=== PATIENT | female | born 1970 | race American Indian/Alaskan Native ===

== ENCOUNTER 2019-08-09 00:11 | Emergency (ER) | payer MEDICARE ==
[2019-08-09] MEDS ORDERED: ONDANSETRON 4 MG/2 ML INJ IV ONE ×2 (00:45→03:15)
[2019-08-09] MEDS ORDERED: MORPHINE 4 MG/1 ML INJ IV ONE (00:45)
[2019-08-09] MEDS ORDERED: SODIUM CHLORIDE 0.9% 500 ML 500 ML IV ONE (00:46)
--- NOTE | 2019-08-09 01:19 | Emergency Department Report ---
ED Abdominal Pain HPI - General Chief Complaint: Abdominal Pain Stated Complaint: ABDOMINAL PAIN Time Seen by Provider: 08/09/19 00:34 Source: patient Mode of arrival: Ambulatory Limitations: No Limitations - History of Present Illness Initial Comments: Patient is a 49-year-old female who presents emergency room with complaints of epigastric and right upper quadrant pain that began 4 days ago but worsened in the last 2 days. She has associated nausea and vomiting. She states that she has had approximately 3 episodes of vomiting today. She states that she is unable to tolerate p.o. intake. She denies any fever, diarrhea, hematochezia, pus in the stool, melena, hematemesis, urinary symptoms. Patient states that she has been taking Bentyl without much relief. She states that she has a history of pancreatitis. She states that her GI doctor is at [facility]. She has a past medical history of lupus and hypertension. She has an allergy to penicillin. She states that she went through menopause. Severity scale (0 -10): 10 - Related Data Home Medications Medication Instructions Recorded Confirmed Last Taken SEROquel 200 mg PO DAILY 01/04/15 01/19/18 01/16/18 traZODone 100 mg PO DAILY 01/04/15 01/19/18 01/16/18 Previous Rx's Medication Instructions Recorded Last Taken Type Losartan [Cozaar] 50 mg PO QDAY #30 tablet 01/24/18 Unknown Rx Pantoprazole [Protonix TAB] 40 mg PO DAILY #30 tablet 01/24/18 Unknown Rx Sertraline [Zoloft] 100 mg PO BID tablet 01/24/18 Unknown Rx Tri-Previfem Tablet 1 tab PO DAILY 01/24/18 Unknown Rx amLODIPine 10 mg PO QDAY #30 tablet 01/24/18 Unknown Rx hydrALAZINE [Apresoline TAB] 10 mg PO Q8H #90 tablet 01/24/18 Unknown Rx metroNIDAZOLE [Flagyl] 500 mg PO Q8HR #15 tablet 01/24/18 Unknown Rx oxyCODONE /ACETAMINOPHEN [Percocet 1 tab PO QHS PRN #5 tablet 01/24/18 Unknown Rx 5/325] HYDROcodone/APAP 5-325 [Hackberry 1 each PO Q6HR PRN #10 tablet 08/09/19 Unknown Rx 5/325] Ondansetron [Zofran Odt] 4 mg PO Q8HR PRN #10 tab.rapdis 08/09/19 Unknown Rx Allergies Allergy/AdvReac Type Severity Reaction Status Date / Time Penicillins Allergy Hives Verified 01/11/15 15:15 ED Review of Systems ROS: Stated complaint: ABDOMINAL PAIN Other details as noted in HPI Comment: All other systems reviewed and negative ED Past Medical Hx - Past Medical History Hx Hypertension: Yes Hx Heart Attack/AMI: No Hx Liver Disease: No Hx Renal Disease: No Hx Sickle Cell Disease: Yes (trait) Hx Seizures: No Hx Asthma: No Hx COPD: No Hx HIV: No Additional medical history: Angina, Lupus, pancreatitis - Surgical History Past Surgical History?: No Hx Pacemaker: No Hx Internal Defibrillator: No Additional Surgical History: Hernia, Fibroids - Social History Smoking Status: Current Some Day Smoker - Medications Home Medications: Home Medications Medication Instructions Recorded Confirmed Last Taken Type SEROquel 200 mg PO DAILY 01/04/15 01/19/18 01/16/18 History traZODone 100 mg PO DAILY 01/04/15 01/19/18 01/16/18 History Losartan [Cozaar] 50 mg PO QDAY #30 tablet 01/24/18 Unknown Rx Pantoprazole [Protonix TAB] 40 mg PO DAILY #30 tablet 01/24/18 Unknown Rx Sertraline [Zoloft] 100 mg PO BID tablet 01/24/18 Unknown Rx Tri-Previfem Tablet 1 tab PO DAILY 01/24/18 Unknown Rx amLODIPine 10 mg PO QDAY #30 tablet 01/24/18 Unknown Rx hydrALAZINE [Apresoline TAB] 10 mg PO Q8H #90 tablet 01/24/18 Unknown Rx metroNIDAZOLE [Flagyl] 500 mg PO Q8HR #15 tablet 01/24/18 Unknown Rx oxyCODONE /ACETAMINOPHEN [Percocet 1 tab PO QHS PRN #5 tablet 01/24/18 Unknown Rx 5/325] HYDROcodone/APAP 5-325 [Hackberry 1 each PO Q6HR PRN #10 tablet 08/09/19 Unknown Rx 5/325] Ondansetron [Zofran Odt] 4 mg PO Q8HR PRN #10 tab.rapdis 08/09/19 Unknown Rx ED Physical Exam - General Limitations: No Limitations General appearance: alert, in no apparent distress - Head Head exam: Present: atraumatic, normocephalic - Eye Eye exam: Present: normal appearance - ENT ENT exam: Present: mucous membranes moist - Respiratory Respiratory exam: Present: normal lung sounds bilaterally. Absent: respiratory distress, wheezes, rales, rhonchi, stridor, chest wall tenderness, accessory muscle use, decreased breath sounds, prolonged expiratory - Cardiovascular Cardiovascular Exam: Present: regular rate, normal rhythm, normal heart sounds. Absent: systolic murmur, diastolic murmur, rubs, gallop - GI/Abdominal GI/Abdominal exam: Present: soft, tenderness (RUQ, epigastric), guarding (voluntary ), normal bowel sounds, other (positive murphys sign). Absent: distended, rebound, rigid - Rectal Rectal exam: Present: normal rectal tone, other (graduate teacher education: CARRIE ayala, rectal vault is empty, there is no ttp of the rectum, no obvious masses). Absent: fecal impaction, hemorrhoids - Neurological Exam Neurological exam: Present: alert, oriented X3 - Psychiatric Psychiatric exam: Present: normal affect, normal mood - Skin Skin exam: Present: warm, dry, intact ED Course Vital Signs 08/09/19 08/09/19 08/09/19 00:13 00:57 01:27 Temperature 98.4 F Pulse Rate 94 H Respiratory 18 18 18 Rate Blood Pressure 167/98 Blood Pressure [Left] O2 Sat by Pulse 99 Oximetry 08/09/19 08/09/19 08/09/19 03:22 03:52 03:54 Temperature 98.0 F Pulse Rate 88 Respiratory 18 18 18 Rate Blood Pressure Blood Pressure 143/94 [Left] O2 Sat by Pulse 100 Oximetry - Consultations Consultation #1: 08/09/19 03:[address] Ascencio, general surgery regarding CT abdomen pelvis findings, he believes very unlikely to be perirectal abscess given no rectal pain or leukocytosis, recommended doing digital rectal exam to assess for tenderness and swelling, he advised that if not having tenderness then most likely to be neoplasm and patient will need to follow-up as an outpatient with colorectal surgery ED Medical Decision Making - Lab Data Result diagrams: 08/09/19 01:22 08/09/19 01:22 Lab Results 08/09/19 08/09/19 08/09/19 Range/Units 01:22 01:22 Unknown WBC 4.0 L (4.5-11.0) K/mm3 RBC 5.37 H (3.65-5.03) M/mm3 Hgb 12.7 (10.1-14.3) gm/dl Hct 39.4 (30.3-42.9) % MCV 73 L (79-97) fl MCH 24 L (28-32) pg MCHC 32 (30-34) % RDW 14.7 (13.2-15.2) % Plt Count 138 L (140-440) K/mm3 Lymph % (Auto) 38.0 H (13.4-35.0) % [place] % (Auto) 11.3 H (0.0-7.3) % Eos % (Auto) 1.0 (0.0-4.3) % Baso % (Auto) 0.8 (0.0-1.8) % Lymph # 1.5 (1.2-5.4) K/mm3 [place] # 0.4 (0.0-0.8) K/mm3 Eos # 0.0 (0.0-0.4) K/mm3 Baso # 0.0 (0.0-0.1) K/mm3 Seg Neutrophils % 48.9 (40.0-70.0) % Seg Neutrophils # 1.9 (1.8-7.7) K/mm3 Sodium 139 (137-145) mmol/L Potassium 4.0 (3.6-5.0) mmol/L Chloride 101.6 (98-107) mmol/L Carbon Dioxide 25 (22-30) mmol/L Anion Gap 16 mmol/L BUN 15 (7-17) mg/dL Creatinine 0.7 (0.7-1.2) mg/dL Estimated GFR > 60 ml/min BUN/Creatinine Ratio 21 % Glucose 127 H (65-100) mg/dL Calcium 8.8 (8.4-10.2) mg/dL Total Bilirubin 0.30 (0.1-1.2) mg/dL AST 14 (5-40) units/L ALT 9 (7-56) units/L Alkaline Phosphatase 84 (35-129) units/L Troponin T < 0.010 (0.00-0.029) ng/mL Total Protein 5.9 L (6.3-8.2) g/dL Albumin 4.0 (3.9-5) g/dL Albumin/Globulin Ratio 2.1 % Lipase 73 H (13-60) units/L Urine Color Straw (Yellow) Urine Turbidity Clear (Clear) Urine pH 7.0 (5.0-7.0) Ur Specific [place] 1.013 (1.003-1.030) Urine Protein <15 mg/dl (Negative) mg/dL Urine Glucose (UA) Neg (Negative) mg/dL Urine Ketones Neg (Negative) mg/dL Urine Blood Sm (Negative) Urine Nitrite Neg (Negative) Urine Bilirubin Neg (Negative) Urine Urobilinogen < 2.0 (<2.0) mg/dL Ur Leukocyte Esterase Neg (Negative) Urine WBC (Auto) 1.0 (0.0-6.0) /HPF Urine RBC (Auto) 3.0 (0.0-6.0) /HPF U Epithel Cells (Auto) 2.0 (0-13.0) /HPF Urine Bacteria (Auto) 1+ (Negative) /HPF - EKG Data EKG shows normal: sinus rhythm, axis, intervals, QRS complexes Rate: normal - EKG Data 08/09/19 04:[address]-T wave changes No STEMI - Radiology Data Radiology results: report reviewed CT ABDOMEN AND PELVIS WITH CONTRAST INDICATION: epigastric, RUQ pain, hx of pancreatitis, CONTRAST: 75 cc Omnipaque 300 IV COMPARISON: 01/19/[address] scans at this location are performed using CT dose reduction for ALARA by means of automated exposure control. FINDINGS: Mild atelectatic changes are noted in the left lower lobe but no areas of consolidation are seen. No pneumoperitoneum is noted. Multiple small hypodensities are stable in the liver. I see no abnormalities of the gallbladder or bile ducts. Pancreas shows no obvious masses but the pancreatic duct is mildly prominent at up to 4 mm in the proximal to midportion. No definite inflammation is seen of the pancreas though there is some fluid density now adjacent to the pancreas which was not obvious previously. No organized collection is seen however. No urinary obstructive changes are seen. No evidence of bowel obstruction is noted. Appendix appears within normal limits. Multiple uterine leiomyomata are again seen. No lymphadenopathy is noted. 2 the right of the upper to mid rectum and ovoid 2.5 x 1.2 cm possible collection is seen with internal density well above the water range measuring 65 Hounsfield units. On previous study there is a suggestion of a much less obvious thickening in this area. This may be intramural and could actually represent a mass in the wall of the rectum rather than a collection. I do not see significant surrounding inflammation. No obstructive changes are seen. No evidence of perforation is noted. IMPRESSION: 1. Though I do not see obvious acute inflammation of the pancreas there appears to be a small amount of peripancreatic fluid, nonorganized, which might relate to recent pancreatitis. The pancreatic duct is slightly prominent now without a source seen. Clinical correlation is suggested. 2. Mass versus moderate density collection in the right wall of the rectum as above. I do not see surrounding inflammation. Neoplasia versus developing perirectal abscess should be considered. Signer Name: Jan Augustin MD Signed: 08/09/2019 2:56 AM Workstation Name: [id number] Transcribed By: IMELDA Dictated By: Jan Augustin MD Electronically Authenticated By: Jan Augustin MD Signed Date/Time: 08/09/19 0256 DD/ 0244 TD/TT: - Medical Decision Making Patient is a 49-year-old female who presents emergency room with complaints of epigastric and right upper quadrant pain that began 4 days ago but worsened in the last 2 days. She has associated nausea and vomiting. She states that she has had approximately 3 episodes of vomiting today. She states that she is unable to tolerate p.o. intake. She denies any fever, diarrhea, hematochezia, pus in the stool, melena, hematemesis, urinary symptoms. Patient states that she has been taking Bentyl without much relief. She states that she has a history of pancreatitis. She states that her GI doctor is at [facility]. She has a past medical history of lupus and hypertension. She has an allergy to penicillin. She states that she went through menopause. Vitals are stable. Labs with very mildly elevated lipase at 73, otherwise stable. UA is normal. CT abd pelvis: 1. Though I do not see obvious acute inflammation of the pancreas there appears to be a small amount of peripancreatic fluid, nonorganized, which might relate to recent pancreatitis. The pancreatic duct is slightly prominent now without a source seen. Clinical correlation is suggested. 2. Mass versus moderate density collection in the right wall of the rectum as above. I do not see surrounding inflammation. Neoplasia versus developing perirectal abscess should be considered. Discussed CT findings with Dr. Del Rio, ER attending who r ecommended to consult general surgery regarding neoplasia versus perirectal abscess. Spoke with Dr. Ascencio, general surgery regarding CT abdomen pelvis findings, he believes very unlikely to be perirectal abscess given no rectal pain or leukocytosis, recommended doing digital rectal exam to assess for tenderness and swelling, he advised that if not having tenderness then most likely to be neoplasm and patient will need to follow-up as an outpatient with colorectal surgery. Digital rectal exam performed and there is no tenderness, no obvious palpable mass, graduate teacher education CARRIE Ayala. Patient given IV fluids, nausea medication, pain medication and symptoms significantly improved. Patient was able to tolerate p.o. intake while in the emergency department. Discussed all results with patient and patient given her CT report. Discussed with patient that she need to follow-up with her GI doctor. Patient also referred to colorectal surgeon. Discussed the importance of patient following up with a colorectal surgeon regarding the rectal mass on CT. Patient verbalized understanding. Patient given prescription for Zofran and Hackberry. Advised patient Please take medication as prescribed. Do not drive or operate heavy machinery while taking pain medication. Increase your fluid intake over the next several days. Eat a bland diet. Please initially start with liquids and slowly advance your diet. Please follow-up with a colorectal surgeon due to the mass present on your CT. Please take your CT report with you. Return to emergency room for any new or worsening symptoms including but not limited to worsening abdominal pain, fever, unable to tolerate by mouth intake, etc. discussed strict return precautions with patient. - Differential Diagnosis Pancreatitis, PUD, GERD, cholelithiasis, cholecystitis, bowel obstruction Critical care attestation.: If time is entered above; I have spent that time in minutes in the direct care of this critically ill patient, excluding procedure time. ED Disposition Clinical Impression: Rectal mass Abdominal pain Qualifiers: Abdominal location: epigastric Qualified Code(s): R10.13 - Epigastric pain Disposition: - TO HOME OR SELFCARE Is pt being admited?: No Does the pt Need Aspirin: No Condition: Stable Instructions: Abdominal Pain (ED) Additional Instructions: Please take medication as prescribed. Do not drive or operate heavy machinery while taking pain medication. Increase your fluid intake over the next several days. Eat a bland diet. Please initially start with liquids and slowly advance your diet. Please follow-up with a colorectal surgeon due to the mass present on your CT. Please take your CT report with you. Return to emergency room for any new or worsening symptoms including but not limited to worsening abdominal pain, fever, unable to tolerate by mouth intake, etc. [facility] Address: [address], [place] [address] [facility] Address: [address], [place] [address] [facility], Address: [address], [place] [address] Prescriptions: HYDROcodone/APAP 5-325 [Hackberry 5/325] 1 each PO Q6HR PRN #10 tablet PRN Reason: Pain , Severe (7-10) Ondansetron [Zofran Odt] 4 mg PO Q8HR PRN #10 tab.rapdis PRN Reason: Nausea And Vomiting Referrals: colorectal, surgeon [Other] - 3-5 Days Time of Disposition: 03:57 Print Language: KISWAHILI
[2019-08-09 01:37] LABS: Bacteria,Urine 1+ /HPF (Negative); Bilirubin,Urine NEG (Negative); Blood,Urine SM (Negative); Color,Urine Straw (Yellow); Protein,Urine <15 mg/dL mg/dL (Negative); Urobilinogen,Urine < 2.0 mg/dL (<2.0)
[2019-08-09 01:48] LABS: Basophils % (Auto) 0.8 % (0.0-1.8); Hematocrit 39.4 % (30.3-42.9); Hemoglobin 12.7 gm/dl (10.1-14.3); Lymphocytes # (Auto) 1.5 K/mm3 (1.2-5.4); Mean Corpuscular HGB Conc 32 % (30-34); Mean Corpuscular Volume 73 fl (79-97); Monocytes # (Auto) 0.4 K/mm3 (0.0-0.8); Monocytes % (Auto) 11.3 % (0.0-7.3); Platelet Count 138 K/mm3 (140-440); Red Blood Count 5.37 M/mm3 (3.65-5.03); Red Cell Distribution Width 14.7 % (13.2-15.2)
[2019-08-09 02:09] LABS: Alanine Aminotransferase 9 units/L (7-56); BUN/Creatinine Ratio 21; Blood Urea Nitrogen 15 mg/dL (7-17); Calcium 8.8 mg/dL (8.4-10.2); Hemolysis Index 43
--- NOTE | 2019-08-09 03:01 | Cat Scan Report ---
CT ABDOMEN AND PELVIS WITH CONTRAST INDICATION: epigastric, RUQ pain, hx of pancreatitis, CONTRAST: 75 cc Omnipaque 300 IV COMPARISON: 01/19/[address] scans at this location are performed using CT dose reduction for ALARA by means of automated e xposure control. FINDINGS: Mild atelectatic changes are noted in the left lower lobe but no areas of consolidation are seen. No pneumoperitoneum is noted. Multiple small hypodensities are stable in the liver. I see no a bnormalities of the gallbladder or bile ducts. Pancreas shows no obvious masses but the pancreatic duct is mildly prominent at up to 4 mm in the pro ximal to midportion. No definite inflammation is seen of the pancreas though there is some fluid dens ity now adjacent to the pancreas which was not obvious previously. No organized collection is seen ho wever. No urinary obstructive changes are seen. No evidence of bowel obstruction is noted. Appendix appears within normal limits. Multiple uterine leiomyomata are again seen. No lymphadenopathy is noted. 2 the right of the upper to mid rectum and ovoid 2.5 x 1.2 cm possible collection is seen with rn intern al density well above the water range measuring 65 Hounsfield units. On previous study there is a sug gestion of a much less obvious thickening in this area. This may be intramural and could actually rep resent a mass in the wall of the rectum rather than a collection. I do not see significant surroundin g inflammation. No obstructive changes are seen. No evidence of perforation is noted. IMPRESSION: 1. Though I do not see obvious acute inflammation of the pancreas there appears to be a small amount of peripancreatic fluid, nonorganized, which might relate to recent pancreatitis. The pancreatic duct is slightly prominent now without a source seen. Clinical correlation is suggested. 2. Mass versus moderate density collection in the right wall of the rectum as above. I do not see jesse rounding inflammation. Neoplasia versus developing perirectal abscess should be considered. Signer Name: Jan Augustin MD Signed: 08/09/2019 2:56 AM Workstation Name: [id number]
[2019-08-09] MEDS ORDERED: HYDROmorphone 1 MG/1 ML INJ IV ONE (03:15)
[2019-08-09 03:56] VITALS: BP 143/94
== END 2019-08-09 04:10 | disposition home or self-care (01) ==
LOC: ED 00:11
DX: R10.13 Epigastric pain (principal); R19.09 Other intra-abdominal and pelvic swelling, mass and lump; I10 Essential (primary) hypertension; D57.3 Sickle-cell trait; F17.200 Nicotine dependence, unspecified, uncomplicated; Z79.899 Other long term (current) drug therapy
CPT/HCPCS: 36415; 74177; 80053; 81001; 83690; 84484; 85025; 93005; 96374; 96375; 96376; 99284; J1170; J2270; J2405; J7040; Q9967; 96361

== ENCOUNTER 2020-01-12 15:25 | Emergency (ER) | payer MEDICARE ==
[2020-01-12 15:36] VITALS: BP 130/84
[2020-01-12] MEDS ORDERED: KETOROLAC 30 MG/1 ML INJ IM ONE (18:34)
--- NOTE | 2020-01-12 18:55 | Emergency Department Report ---
- General Chief complaint: Skin/Abscess/Foreign Body Stated complaint: RT LEG SPIDER BITE Time Seen by Provider: 01/12/20 18:12 Source: patient Mode of arrival: Ambulatory Limitations: No Limitations - History of Present Illness Initial comments: 49-year-old F Samoan female that emerge department complaining of a 2-day history of abscess wound to the right gluteal region which is been progressively worsening since the onset has remained afebrile but is been coming increasingly more tender so [facility] evaluation and treatment options complaint: abscess/boil -: Gradual Tetanus Up to Date: yes Location: buttocks Severity: mild, moderate Quality: dull Consistency: constant Improves with: none Worsens with: none Context: none - Related Data Home Medications Medication Instructions Recorded Confirmed Last Taken SEROquel 200 mg PO DAILY 01/04/15 01/19/18 01/16/18 traZODone 100 mg PO DAILY 01/04/15 01/19/18 01/16/18 Previous Rx's Medication Instructions Recorded Last Taken Type Losartan [Cozaar] 50 mg PO QDAY #30 tablet 01/24/18 Unknown Rx Pantoprazole [Protonix TAB] 40 mg PO DAILY #30 tablet 01/24/18 Unknown Rx Sertraline [Zoloft] 100 mg PO BID tablet 01/24/18 Unknown Rx Tri-Previfem Tablet 1 tab PO DAILY 01/24/18 Unknown Rx amLODIPine 10 mg PO QDAY #30 tablet 01/24/18 Unknown Rx hydrALAZINE [Apresoline TAB] 10 mg PO Q8H #90 tablet 01/24/18 Unknown Rx metroNIDAZOLE [Flagyl] 500 mg PO Q8HR #15 tablet 01/24/18 Unknown Rx oxyCODONE /ACETAMINOPHEN [Percocet 1 tab PO QHS PRN #5 tablet 01/24/18 Unknown Rx 5/325] HYDROcodone/APAP 5-325 [[place] 1 each PO Q6HR PRN #10 tablet 08/09/19 Unknown Rx 5/325] Ondansetron [Zofran Odt] 4 mg PO Q8HR PRN #10 tab.rapdis 08/09/19 Unknown Rx Chlorhexidine Mouthwash [Peridex] 15 ml MM BID #1 bottle 01/12/20 Unknown Rx Sulfamethoxazole/Trimethoprim 1 each PO BID #20 tablet 01/12/20 Unknown Rx [Bactrim Ds] traMADoL [Ultram] 50 mg PO Q6HR PRN #20 tablet 01/12/20 Unknown Rx Allergies Allergy/AdvReac Type Severity Reaction Status Date / Time Penicillins Allergy Hives Verified 01/11/15 15:15 Abscess Boil HPI - HPI Chief Complaint: Skin/Abscess/Foreign Body Stated Complaint: RT LEG SPIDER BITE Time Seen by Provider: 01/12/20 18:12 Home Medications: Home Medications Medication Instructions Recorded Confirmed Last Taken SEROquel 200 mg PO DAILY 01/04/15 01/19/18 01/16/18 traZODone 100 mg PO DAILY 01/04/15 01/19/18 01/16/18 Previous Rx's Medication Instructions Recorded Last Taken Type Losartan [Cozaar] 50 mg PO QDAY #30 tablet 01/24/18 Unknown Rx Pantoprazole [Protonix TAB] 40 mg PO DAILY #30 tablet 01/24/18 Unknown Rx Sertraline [Zoloft] 100 mg PO BID tablet 01/24/18 Unknown Rx Tri-Previfem Tablet 1 tab PO DAILY 01/24/18 Unknown Rx amLODIPine 10 mg PO QDAY #30 tablet 01/24/18 Unknown Rx hydrALAZINE [Apresoline TAB] 10 mg PO Q8H #90 tablet 01/24/18 Unknown Rx metroNIDAZOLE [Flagyl] 500 mg PO Q8HR #15 tablet 01/24/18 Unknown Rx oxyCODONE /ACETAMINOPHEN [Percocet 1 tab PO QHS PRN #5 tablet 01/24/18 Unknown Rx 5/325] HYDROcodone/APAP 5-325 [[place] 1 each PO Q6HR PRN #10 tablet 08/09/19 Unknown Rx 5/325] Ondansetron [Zofran Odt] 4 mg PO Q8HR PRN #10 tab.rapdis 08/09/19 Unknown Rx Chlorhexidine Mouthwash [Peridex] 15 ml MM BID #1 bottle 01/12/20 Unknown Rx Sulfamethoxazole/Trimethoprim 1 each PO BID #20 tablet 01/12/20 Unknown Rx [Bactrim Ds] traMADoL [Ultram] 50 mg PO Q6HR PRN #20 tablet 01/12/20 Unknown Rx Allergies/Adverse Reactions: Allergies Allergy/AdvReac Type Severity Reaction Status Date / Time Penicillins Allergy Hives Verified 01/11/15 15:15 ED Review of Systems ROS: Stated complaint: RT LEG SPIDER BITE Other details as noted in HPI Comment: All other systems reviewed and negative ED Past Medical Hx - Past Medical History Previous Medical History?: Yes Hx Hypertension: Yes Hx Heart Attack/AMI: No Hx Liver Disease: No Hx Renal Disease: No Hx Sickle Cell Disease: Yes (trait) Hx Seizures: No Hx Asthma: No Hx COPD: No Hx HIV: No Additional medical history: Angina, Lupus, pancreatitis - Surgical History Past Surgical History?: Yes Hx Pacemaker: No Hx Internal Defibrillator: No Additional Surgical History: Hernia, Fibroids - Social History Smoking Status: Current Some Day Smoker - Medications Home Medications: Home Medications Medication Instructions Recorded Confirmed Last Taken Type SEROquel 200 mg PO DAILY 01/04/15 01/19/18 01/16/18 History traZODone 100 mg PO DAILY 01/04/15 01/19/18 01/16/18 History Losartan [Cozaar] 50 mg PO QDAY #30 tablet 01/24/18 Unknown Rx Pantoprazole [Protonix TAB] 40 mg PO DAILY #30 tablet 01/24/18 Unknown Rx Sertraline [Zoloft] 100 mg PO BID tablet 01/24/18 Unknown Rx Tri-Previfem Tablet 1 tab PO DAILY 01/24/18 Unknown Rx amLODIPine 10 mg PO QDAY #30 tablet 01/24/18 Unknown Rx hydrALAZINE [Apresoline TAB] 10 mg PO Q8H #90 tablet 01/24/18 Unknown Rx metroNIDAZOLE [Flagyl] 500 mg PO Q8HR #15 tablet 01/24/18 Unknown Rx oxyCODONE /ACETAMINOPHEN [Percocet 1 tab PO QHS PRN #5 tablet 01/24/18 Unknown Rx 5/325] HYDROcodone/APAP 5-325 [[place] 1 each PO Q6HR PRN #10 tablet 08/09/19 Unknown Rx 5/325] Ondansetron [Zofran Odt] 4 mg PO Q8HR PRN #10 tab.rapdis 08/09/19 Unknown Rx Chlorhexidine Mouthwash [Peridex] 15 ml MM BID #1 bottle 01/12/20 Unknown Rx Sulfamethoxazole/Trimethoprim 1 each PO BID #20 tablet 01/12/20 Unknown Rx [Bactrim Ds] traMADoL [Ultram] 50 mg PO Q6HR PRN #20 tablet 01/12/20 Unknown Rx ED Physical Exam - General Limitations: No Limitations General appearance: alert, in no apparent distress - Head Head exam: Present: atraumatic, normocephalic - Eye Eye exam: Present: normal appearance, PERRL, EOMI - ENT ENT exam: Present: mucous membranes moist - Neck Neck exam: Present: normal inspection - Respiratory Respiratory exam: Present: normal lung sounds bilaterally. Absent: respiratory distress - Cardiovascular Cardiovascular Exam: Present: regular rate, normal rhythm. Absent: systolic murmur, diastolic murmur, rubs, gallop - GI/Abdominal GI/Abdominal exam: Present: soft, normal bowel sounds - Extremities Exam Extremities exam: Present: normal inspection - Back Exam Back exam: Present: normal inspection - Neurological Exam Neurological exam: Present: alert, oriented X3 - Psychiatric Psychiatric exam: Present: normal affect, normal mood - Skin Skin exam: Present: warm, dry, erythema. Absent: rash - Expanded Skin Exam Expanded 1 - Gluteal wound scant drainage with some surrounding cellulitis no lymphangitis noted. Minimal induration tenderness with palpation. ED Course Vital Signs 01/12/20 15:34 Temperature 98.6 F Respiratory 18 Rate Blood Pressure 130/84 ED Medical Decision Making - Medical Decision Making 49-year-old Samo[place] female with wound to her right gluteal region some local cellulitis no lymphangitis. Afebrile with pain treated: With Toradol IM in the emergency department will move forward with antimicrobial therapy oral and have wound reevaluated in 2 days. His present time patient states the wound is draining she wants to try hot sitz bath versus incision and drainage at present if symptoms do worsen advised patient is incision incision and drainage would be the best option for therapy Critical care attestation.: If time is entered above; I have spent that time in minutes in the direct care of this critically ill patient, excluding procedure time. ED Disposition Clinical Impression: Wound of right buttock Disposition: [id number] TO HOME OR SELFCARE Is pt being admited?: No Does the pt Need Aspirin: No Condition: Stable Instructions: Cellulitis (ED), Acute Wound Care (ED) Additional Instructions: Wound reevaluation in 24 to 48 hours Prescriptions: Sulfamethoxazole/Trimethoprim [Bactrim Ds] 1 each PO BID #20 tablet Chlorhexidine Mouthwash [Peridex] 15 ml MM BID #1 bottle traMADoL [Ultram] 50 mg PO Q6HR PRN #20 tablet PRN Reason: Pain Referrals: [facility] [Provider Group] - 3-5 Days
== END 2020-01-12 19:21 | disposition home or self-care (01) ==
LOC: ED 15:25
DX: S31.819A Unspecified open wound of right buttock, initial encounter (principal); I10 Essential (primary) hypertension; D57.3 Sickle-cell trait; F17.200 Nicotine dependence, unspecified, uncomplicated; Z98.890 Other specified postprocedural states; Z79.899 Other long term (current) drug therapy; Z88.0 Allergy status to penicillin; X58.XXXA Exposure to other specified factors, initial encounter; Y93.89 Activity, other specified; Y92.89 Other specified places as the place of occurrence of the external cause; Y99.8 Other external cause status
CPT/HCPCS: 96372; 99282; J1885